=== PATIENT | male | born 1955 | race Caucasian/White ===

== ENCOUNTER 2017-06-30 07:24 | Day surgery (SDC) | payer MEDICARE, OTHER ==
[~2017-06-30] VITALS: Ht 175.3 cm; Wt 102.3 kg
[2017-06-30] VITALS (13 sets, daily range): BP systolic 109–146; BP diastolic 67–99
[2017-06-30] MEDS ORDERED: LIDOcaine 1% (10mg/ml) 2ml vial ONE (07:48)
[2017-06-30] MEDS ORDERED: normal saline 1000ml 1,000 ML IV SCH (07:55)
[2017-06-30] MEDS ORDERED: LORazepam 0.5 MG tablet PO PRN (07:55)
[2017-06-30] MEDS ORDERED: diphenhydrAMINE 25mg capsule PO PRN (07:55)
[2017-06-30] MEDS ORDERED: nitroGLYCERIN-Tridil 50MG/D5W 250 ML IV ONE (09:06)
[2017-06-30] MEDS ORDERED: LIDOcaine 1% 30ml vial 30 ML ONE (09:07)
[2017-06-30] MEDS ORDERED: iohexol 350 MG/ML 50ML vial IV ONE (09:07)
[2017-06-30] MEDS ORDERED: ATOR20TA66 PO (09:07)
[2017-06-30] MEDS ORDERED: FISH OIL PO (09:07)
[2017-06-30] MEDS ORDERED: METO25TA6 PO (09:07)
[2017-06-30] MEDS ORDERED: iohexol 350MG/ML 100ml bottle IV ONE (09:07)
[2017-06-30] MEDS ORDERED: HYDR-565 PO (09:07)
[2017-06-30] MEDS ORDERED: LISI10TA4 PO (09:07)
[2017-06-30] MEDS ORDERED: ASPI-1265 PO (09:07)
[2017-06-30] MEDS ORDERED: MELO-102 PO (09:07)
[2017-06-30] MEDS ORDERED: heparin 1,000unit/ml 10ml vial 10 ML ONE (09:07)
[2017-06-30] MEDS ORDERED: fentaNYL/PF 50MCG/1 ML 2ML syringe ONE (09:07)
[2017-06-30] MEDS ORDERED: midazolam 2 mg/2 ml injection ONE (09:07)
[2017-06-30] MEDS ORDERED: LEVO125T PO (09:07)
[2017-06-30 14:41] LABS: ISTAT Hct MIX 35 %PCV (42-52); ISTAT O2 SATURATION MIX VENOUS 54 % (60-80); ISTAT SOURCE MIX
[2017-06-30 14:41] LABS: ISTAT HGB ART 11.9 g/dl (14.0-18.0); ISTAT Hct ART 35 %PCV (42-52); ISTAT O2 SATURATION ARTERIAL 99 % (95-98); ISTAT SOURCE ART
== END 2017-06-30 17:00 | disposition home or self-care (01) ==
LOC: SSTAY O 07:24
PROVIDERS: ATTEND Internal Medicine Cardiovascular Disease
DX: I25.10 Atherosclerotic heart disease of native coronary artery without angina pectoris (principal); I10 Essential (primary) hypertension; E78.5 Hyperlipidemia, unspecified; Z95.5 Presence of coronary angioplasty implant and graft; E03.9 Hypothyroidism, unspecified; M19.90 Unspecified osteoarthritis, unspecified site; F17.210 Nicotine dependence, cigarettes, uncomplicated
CPT/HCPCS: 82803; 85014; 93005; 93460; A6257; C1760; C1769; J1644; J2250; J3010; J3490; J7030; Q0163; Q9967; 99152; 99153; A4620

== ENCOUNTER 2018-07-20 16:08 | Inpatient (IN) | payer MEDICARE, OTHER ==
[~2018-07-20] VITALS: Ht 177.8 cm; Wt 102.7 kg
[~2018-07-20 16:08] MED LIST: ASPI-1265 PO; ATOR20TA66 PO; FISH OIL PO; HYDR-4353 PO; LEVO125T PO; LISI10TA4 PO; MELO-102 PO; METO25TA6 PO
[2018-07-20] MEDS ORDERED: nitroGLYCERIN-Tridil 50MG/D5W 250 ML IV PRN (16:25)
[2018-07-20] MEDS ORDERED: aspirin 81mg tab.chew PO ONE (16:25)
[2018-07-20] MEDS: heparin 25,000 UNIT/250ml bag 250 ML IV SCH (16:49)
[2018-07-20 17:16] LABS: BASOPHILS % (AUTO) 0.6 % (0-1); EOSINOPHILS # (AUTO) 0.4 X10'3 (0-0.9); EOSINOPHILS % (AUTO) 4.7 % (0-6); HEMATOCRIT 43.7 % (42.0-52.0); HEMOGLOBIN 14.9 g/dl (14.0-17.9); LYMPHOCYTES # (AUTO) 2.4 X10'3 (1.1-4.8); LYMPHOCYTES % (AUTO) 29.6 % (21-51); MEAN CORPUSCULAR HEMOGLOBIN 31.7 PG (27.0-31.0); MEAN CORPUSCULAR VOLUME 93.2 FL (78-98); MEAN PLATELET VOLUME 7.7 FL (7.4-10.4); MONOCYTES # (AUTO) 0.6 X10'3 (0-0.9); MONOCYTES % (AUTO) 7.6 % (2-12); NEUTROPHILS # (AUTO) 4.7 X10'3 (1.8-7.7); NEUTROPHILS % (AUTO) 57.5 % (42-75); PLATELET COUNT 257 X10'3 (140-440); WHITE BLOOD COUNT 8.3 X10'3 (4.5-11.0)
[2018-07-20 17:28] LABS: ALANINE AMINOTRANSFERASE 40 U/L (12-78); ALBUMIN 3.7 G/DL (3.4-5.0); ALBUMIN/GLOBULIN RATIO 1.1 (1.1-1.5); ALKALINE PHOSPHATASE 100 IU/L (46-116); ANION GAP 11 (8-16); ASPARTATE AMINO TRANSFERASE 24 U/L (10-37); BILIRUBIN,TOTAL 0.8 MG/DL (0.1-1.0); BLOOD UREA NITROGEN 21 MG/DL (7-18); BUN/CREATININE RATIO 23.1 (5.4-32.0); CALCIUM 9.2 MG/DL (8.5-10.1); CHLORIDE 103 MMOL/L (99-107); CREATININE 0.91 MG/DL (0.60-1.10); GLUCOSE 95 MG/DL (70-104); POTASSIUM 4.2 MMOL/L (3.5-5.1); SODIUM 139 MMOL/L (135-145); TOTAL CARBON DIOXIDE 25.1 MMOL/L (24-32); eGFR 85 ML/MIN
[2018-07-20] MEDS ORDERED: magnesium 4gm in 100ml NS 100 ML IV PRN (17:30)
[2018-07-20] MEDS ORDERED: ondansetron/PF 4mg/2ml inj IV PRN ×2 (17:30)
[2018-07-20] MEDS ORDERED: magnesium Cl slow-release 64mg tablet PO PRN ×2 (17:30)
[2018-07-20] MEDS ORDERED: morphine 4 MG/ML inj SYRINge IV PRN ×2 (17:30)
[2018-07-20] MEDS ORDERED: magnesium hydroxide 30ml (MOM) UD suspension PO PRN ×2 (17:30)
[2018-07-20] MEDS ORDERED: potassium Cl 20 mEq SR tablet PO PRN ×4 (17:30)
[2018-07-20] MEDS ORDERED: acetaminophen 325mg tablet PO PRN ×2 (17:30)
[2018-07-20] MEDS ORDERED: magnesium 2GM in 50ml NS 50 ML IV PRN (17:30)
[2018-07-20] MEDS ORDERED: potassium Cl 40MEQ/NS 500ml 500 ML IV PRN ×4 (17:30)
[2018-07-20] MEDS ORDERED: mag hydrox/Alum hydrox/simeth 30ml oral suspension PO PRN ×2 (17:30)
[2018-07-20 17:34] LABS: MAGNESIUM 1.6 MG/DL (1.5-2.4)
--- NOTE | 2018-07-20 17:50 | NUR ---
NITROGLYCERIN DRIP (SEE EMAR) TITRATED UP TO 20 MCG/MIN AT THIS TIME FOR INCREASED LEFT CHEST PAIN, STABBING, INTERMITTENT, NON RADIATING, 6/10.
--- NOTE | 2018-07-20 18:00 | NUR ---
PER PATIENT RELIEF WAS ACHIEVED WITH TITRATED NITROGLYCERIN (SEE PREVIOUS NOTE).
[2018-07-20] MEDS ORDERED: DICL75TA5 PO (19:36)
[2018-07-20] MEDS ORDERED: heparin, porcine 5000 units/ml vial SQ SCH ×2 (20:00)
[2018-07-20] MEDS: metoprolol tartrate 25mg tablet PO SCH (20:26)
--- NOTE | 2018-07-20 20:50 | NUR ---
Pt is on PCU in room 3025B. He was able to stand from gurney and get to the hospital bed with minimal assistance. He currently has nitro at 20mcg/kg and heparin at 1,000 units running. 20G RFA appears infiltrated and swollen. DC and placed new 20G in L wrist. Soon after arriving Dr. Stanton visited pt at the bedside. He described risk and benefits of having an angiogram done. Pt has consented to having an angiogram done 07/21. Will provide printed pt education and prep pt tonight. Verbal orders for 100ml/hr of maintenance fluids and NPO at midnight.
[2018-07-20 21:00] VITALS: BP 115/75
[2018-07-20 23:00] VITALS: BP 116/69
--- NOTE | 2018-07-21 01:00 | NUR ---
Pt's PTT is 31 which is low according to cardiac Heparin gtt protocol. Because pt's heparin gtt was started at [facility] no re bolus per protocol was added into pt's orders. Called Dr. Mena who gave telephone orders to add in cardiac re bolus. And okay'd PTT's to be ordered as "Cardiac PTT" not "DVT PTT which was initially put in for first PTT draw here at [facility].
[2018-07-21] MEDS ORDERED: heparin 10,000 units/1 ML INJ IV PRN (01:05)
[2018-07-21] MEDS: heparin 25,000 UNIT/250ml bag 250 ML IV SCH (01:18)
[2018-07-21] MEDS: normal saline 1000ml 1,000 ML IV SCH ×2 (01:19→09:20)
[2018-07-21 03:00] VITALS: BP 99/49
[2018-07-21 05:12] LABS: BASOPHILS # (AUTO) 0.1 X10'3 (0-0.2); BASOPHILS % (AUTO) 0.7 % (0-1); EOSINOPHILS # (AUTO) 0.5 X10'3 (0-0.9); EOSINOPHILS % (AUTO) 6.3 % (0-6); HEMATOCRIT 39.9 % (42.0-52.0); HEMOGLOBIN 13.6 g/dl (14.0-17.9); LYMPHOCYTES # (AUTO) 1.7 X10'3 (1.1-4.8); LYMPHOCYTES % (AUTO) 21.2 % (21-51); MEAN CORPUSCULAR HEMOGLOBIN 31.9 PG (27.0-31.0); MEAN CORPUSCULAR HGB CONC 34.1 g/dL (33.0-36.5); MEAN CORPUSCULAR VOLUME 93.5 FL (78-98); MEAN PLATELET VOLUME 8.1 FL (7.4-10.4); MONOCYTES # (AUTO) 0.6 X10'3 (0-0.9); MONOCYTES % (AUTO) 8.2 % (2-12); NEUTROPHILS % (AUTO) 63.6 % (42-75); PLATELET COUNT 235 X10'3 (140-440); RED BLOOD COUNT 4.27 X10'6 (4.70-6.10); RED CELL DISTRIBUTION WIDTH 13.9 % (11.5-14.5); WHITE BLOOD COUNT 7.9 X10'3 (4.5-11.0)
--- NOTE | 2018-07-21 05:38 | NUR ---
PAGER ID: [phone] MESSAGE: Angela SOMMER/[id number], pt [place] [id number] c/o chest pain, nausea. He has Heparin gtt and Nitroglycerin running. He has angiogram at 0800 in the morning. Addendum: 07/21/18 at 0545 by Angela Vance RN Rajesh Chambers called back, ordered to give pt kael
[2018-07-21 05:39] LABS: ALANINE AMINOTRANSFERASE 39 U/L (12-78); ALBUMIN 3.3 G/DL (3.4-5.0); ALBUMIN/GLOBULIN RATIO 1.2 (1.1-1.5); ALKALINE PHOSPHATASE 86 IU/L (46-116); ANION GAP 8 (8-16); ASPARTATE AMINO TRANSFERASE 18 U/L (10-37); BILIRUBIN,TOTAL 0.7 MG/DL (0.1-1.0); BLOOD UREA NITROGEN 25 MG/DL (7-18); BUN/CREATININE RATIO 25.3 (5.4-32.0); CALCIUM 8.6 MG/DL (8.5-10.1); CHLORIDE 104 MMOL/L (99-107); CREATININE 0.99 MG/DL (0.60-1.10); GLUCOSE 106 MG/DL (70-104); POTASSIUM 4.4 MMOL/L (3.5-5.1); SODIUM 140 MMOL/L (135-145); TOTAL CARBON DIOXIDE 27.7 MMOL/L (24-32); TOTAL PROTEIN 6.1 G/DL (6.4-8.2); eGFR 77 ML/MIN
[2018-07-21 05:43] LABS: CHOL/HDL RATIO 3.5 (0.00-4.99); CHOLESTEROL 138 MG/DL (0-200); HDL CHOLESTEROL 39 MG/DL (35-60); LDL CHOLESTEROL 87 MG/DL (50-100); MAGNESIUM 1.6 MG/DL (1.5-2.4); TRIGLYCERIDES 108 MG/DL (20-135)
--- NOTE | 2018-07-21 06:06 | NUR ---
Pt started complaining of 8 out of 10 chest pain. No radiating pain. Paged Dr. Mcgovern who is aware that pt is going for heart cath today and gave telephone orders to give IV morphine 1mg. 12 lead EKG performed per protocol. Pt still shows sinus rhythm. Per radiotelegraph operator servicer no changes as well. Heart cath scheduled for [address] Thacker.
--- NOTE | 2018-07-21 06:29 | NUR ---
Problems reprioritized. Patient report given, questions answered & plan of care reviewed with Winsome SOMMER.
[2018-07-21 06:30] VITALS: BP 125/87
[2018-07-21] MEDS ORDERED: levoTHYROXINE 125mcg tablet PO SCH (07:00)
[2018-07-21] MEDS ORDERED: heparin 1,000unit/ml 10ml vial 10 ML ONE (07:25)
[2018-07-21] MEDS ORDERED: iohexol 350 MG/ML 50ML vial IV ONE (07:25)
[2018-07-21] MEDS ORDERED: LIDOcaine 1% (10mg/ml)w/preservative injection 20ml MDV ONE (07:25)
[2018-07-21] MEDS ORDERED: nitroGLYCERIN-Tridil 50MG/D5W 250 ML IV ONE (07:25)
[2018-07-21] MEDS ORDERED: iohexol 350MG/ML 100ml bottle IV ONE ×2 (07:25→08:25)
[2018-07-21] MEDS ORDERED: verapamil 2.5 mg/ml inj IV ONE (07:25)
[2018-07-21 07:27] VITALS: BP_SYST 125
[2018-07-21] MEDS: metoprolol tartrate 25mg tablet PO SCH (07:27)
[2018-07-21] MEDS ORDERED: LIDOcaine/PRILOcaine 5gm cream TP ONE (07:30)
[2018-07-21] MEDS ORDERED: fentaNYL/PF 50MCG/1 ML 2ML syringe ONE (07:55)
[2018-07-21] MEDS ORDERED: midazolam 2 mg/2 ml injection ONE (07:55)
[2018-07-21] MEDS ORDERED: K and/or MAG REPLACEMENT MC SCH ×2 (08:00)
[2018-07-21] MEDS ORDERED: lisinopril 10 MG tablet PO SCH (08:00)
[2018-07-21] MEDS ORDERED: atorvastatin 20mg tablet PO SCH (08:00)
[2018-07-21] MEDS ORDERED: aspirin 81mg tab.chew PO SCH (08:30)
--- NOTE | 2018-07-21 09:00 | NUR ---
patient returned from quality assurance/r&d lab technician , bedside report was that the angiogram was uneventful and heparin and nitro have been stopped. prilosec order received, and late tray ordered for patient
[2018-07-21] MEDS ORDERED: pantoprazole 40mg Tablet.DR PO SCH (10:10)
[2018-07-21] MEDS ORDERED: normal saline 1000ml 1,000 ML IV SCH (10:10)
[2018-07-21] MEDS ORDERED: METO25TA6 PO (11:14)
[2018-07-21] MEDS ORDERED: PANT40TA4 PO (11:14)
[2018-07-21] MEDS ORDERED: ISOS30TA6 PO (11:14)
--- NOTE | 2018-07-21 12:38 | NUR ---
patient discharged per MD order, prescriptions called in and discharge packet with instructions provided
== END 2018-07-21 12:15 | disposition home or self-care (01) | DRG 287 ==
LOC: ER 16:09 → ED HOLD 17:26 → PCU 3S 20:50
PROVIDERS: ADMIT Internal Medicine; ATTEND Internal Medicine
PROC: 4A023N7 Measurement of Cardiac Sampling and Pressure, Left Heart, Percutaneous Approach (ICD-10-PCS; principal; 2018-07-21)
PROC: B2111ZZ Fluoroscopy of Multiple Coronary Arteries using Low Osmolar Contrast (ICD-10-PCS; 2018-07-21)
PROC: B2151ZZ Fluoroscopy of Left Heart using Low Osmolar Contrast (ICD-10-PCS; 2018-07-21)
PROC: B3101ZZ Fluoroscopy of Thoracic Aorta using Low Osmolar Contrast (ICD-10-PCS; 2018-07-21)
DX: R07.89 Other chest pain (principal); J44.9 Chronic obstructive pulmonary disease, unspecified; E03.9 Hypothyroidism, unspecified; E78.00 Pure hypercholesterolemia, unspecified; E78.5 Hyperlipidemia, unspecified; I25.10 Atherosclerotic heart disease of native coronary artery without angina pectoris; I10 Essential (primary) hypertension; M19.90 Unspecified osteoarthritis, unspecified site; G89.29 Other chronic pain; M54.9 Dorsalgia, unspecified; I25.2 Old myocardial infarction; Z95.5 Presence of coronary angioplasty implant and graft; Z79.82 Long term (current) use of aspirin; Z79.899 Other long term (current) drug therapy; Z87.891 Personal history of nicotine dependence
CPT/HCPCS: 36415; 71045; 80053; 80061; 83735; 83880; 84484; 85025; 85347; 85730; 87070; 93005; 93306; 93458; 93567; 96374; 99152; 99153; 99291; A4620; C1769; G0378; J1644; J2001; J2250; J2270; J2405; J3010; J3490; J7030; Q9967